=== PATIENT | female | born 1980 | race Asian ===

== ENCOUNTER 2018-12-14 10:03 | Day surgery (SDC) | payer OTHER ==
[~2018-12-14] VITALS: Ht 162.6 cm; Wt 57.5 kg
[2018-12-14 10:53] VITALS: Ht 162.6 cm; Wt 57.5 kg
[2018-12-14] MEDS ORDERED: NO MEDICATIONS (11:00)
[2018-12-14 11:15] VITALS: BP 96/55; PULSE 65; RESP 19
[2018-12-14] MEDS ORDERED: FENTAnyl 50 MCG/ML VIAL ONE (12:08)
[2018-12-14] MEDS ORDERED: MIDAZOLAM 1 MG/ML 2 ML INJ ONE ×2 (12:08)
[2018-12-14 12:35] VITALS: BP 92/58; RESP 20
== END 2018-12-14 14:05 | disposition home or self-care (01) ==
LOC: GIL 10:03
PROVIDERS: ATTEND Internal Medicine Gastroenterology
DX: K92.1 Melena (principal); K64.9 Unspecified hemorrhoids
CPT/HCPCS: 45378; 84703; J2250; J3010; Z7610